=== PATIENT | female | born 1990 | race Two or more races ===

== ENCOUNTER 2019-02-24 23:44 | Emergency (ER) | payer MEDICAID ==
[~2019-02-24] VITALS: Ht 162.6 cm; Wt 68.0 kg
[2019-02-25 01:37] LABS: Urine Bacteria FEW /hpf (None Seen); Urine Blood 1+ /uL (Negative); Urine WBC 9 /hpf (0 - 5)
[2019-02-25 01:39] LABS: Alcohol, Urine < 3.0 mg/dL (0-5); Amphetamine Screen, Urine NEGATIVE (NEGATIVE); Barbiturate Scree,Urine NEGATIVE (NEGATIVE); Benzodiazephine Screen, Urine NEGATIVE (NEGATIVE); Cannabinoid Screen, Urine POSITIVE (NEGATIVE); Cocaine Screen, Urine NEGATIVE (NEGATIVE); Opiate Scree,Urine NEGATIVE (NEGATIVE); Phencyclidine Screen, Urine NEGATIVE (NEGATIVE)
[2019-02-25 03:22] LABS: Urine Pregnacy Test Negative (Negative)
[2019-02-25] MEDS ORDERED: KETOROLAC TROMETH 60MG/2ML VIAL IM ONE (07:00)
[2019-02-25 07:21] VITALS: BP 102/56
== END 2019-02-25 07:40 | disposition home or self-care (01) ==
LOC: ER 23:50
DX: G44.209 Tension-type headache, unspecified, not intractable (principal); J01.00 Acute maxillary sinusitis, unspecified; N39.0 Urinary tract infection, site not specified
CPT/HCPCS: 70450; 80307; 81001; 81025; 96372; 99284; J1885